=== PATIENT | male | born 1955 | race Caucasian/White ===

== ENCOUNTER 2019-05-19 09:08 | Emergency (ER) | payer SELFPAY ==
[~2019-05-19] VITALS: Ht 185.4 cm; Wt 135.4 kg
[2019-05-19] MEDS ORDERED: FURO20 PO (09:22)
[2019-05-19] MEDS ORDERED: LISI-661 PO (09:22)
[2019-05-19 11:30] VITALS: BP 141/87
== END 2019-05-19 11:45 | disposition home or self-care (01) ==
LOC: EMS 09:09
DX: S90.111A Contusion of right great toe without damage to nail, initial encounter (principal); F15.10 Other stimulant abuse, uncomplicated; I48.91 Unspecified atrial fibrillation; I11.0 Hypertensive heart disease with heart failure; I50.9 Heart failure, unspecified; Z79.899 Other long term (current) drug therapy; X58.XXXA Exposure to other specified factors, initial encounter; Y93.89 Activity, other specified; Y92.89 Other specified places as the place of occurrence of the external cause; Y99.9 Unspecified external cause status